=== PATIENT | female | born 2000 | race Caucasian/White ===

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

== ENCOUNTER 2023-10-09 15:22 | Emergency (ER) | payer MEDICAID, OTHER ==
[~2023-10-09] VITALS: Ht 175.3 cm; Wt 63.5 kg
[~2023-10-09 15:22] MED LIST: ONDA-188 SL
[2023-10-09 15:29] VITALS: BP 121/80; PULSE 86; RESP 18; TEMP 98.3; O2SAT 99
[2023-10-09] MEDS: IBUPROFEN 600 MG TAB PO ONE (16:06)
[2023-10-09] MEDS ORDERED: IBUP-2213 PO (16:34)
== END 2023-10-09 16:52 | disposition home or self-care (01) ==
LOC: MED 15:22
DX: S93.491A Sprain of other ligament of right ankle, initial encounter (principal); Z79.899 Other long term (current) drug therapy; X58.XXXA Exposure to other specified factors, initial encounter; Y93.89 Activity, other specified; Y92.89 Other specified places as the place of occurrence of the external cause; Y99.8 Other external cause status
CPT/HCPCS: 73610; 99283

== ENCOUNTER 2023-10-22 15:39 | Emergency (ER) | payer MEDICAID ==
[~2023-10-22] VITALS: Ht 175.3 cm; Wt 63.5 kg
[~2023-10-22 15:39] MED LIST changes: +IBUP-2213 PO
[2023-10-22 15:47] VITALS: BP 119/85; PULSE 117; RESP 18; TEMP 98.1; O2SAT 97
[2023-10-22 17:15] VITALS: BP 121/82; PULSE 88; RESP 16; TEMP 98.1; O2SAT 99
== END 2023-10-22 17:15 | disposition home or self-care (01) ==
LOC: MED 15:39
DX: S93.491A Sprain of other ligament of right ankle, initial encounter (principal); Z79.899 Other long term (current) drug therapy; X58.XXXA Exposure to other specified factors, initial encounter; Y93.89 Activity, other specified; Y92.89 Other specified places as the place of occurrence of the external cause; Y99.8 Other external cause status
CPT/HCPCS: 99281; 99282